=== PATIENT | female | born 1945 | race Caucasian/White ===

== ENCOUNTER → 2017-03-13 | Outpatient (CLI) | payer MEDICARE, OTHER | LOC: M.RAD 15:44 | DX: R05 Cough (principal); R07.89 Other chest pain ==

== ENCOUNTER 2018-03-10 13:54 | Emergency (ER) | payer MEDICARE, OTHER ==
[~2018-03-10] VITALS: Ht 167.6 cm; Wt 84.4 kg
[2018-03-10] MEDS ORDERED: COZAAR 25 MG TA25 M2 PO (14:36)
[2018-03-10] MEDS ORDERED: ZANTAC 150MG T150 MG PO (14:36)
[2018-03-10] MEDS ORDERED: CARISOPRODOL 3350 MG PO (14:37)
[2018-03-10] MEDS ORDERED: SPIRIVA INH (14:37)
[2018-03-10] MEDS ORDERED: PROBIOTIC1 EAC1 PO (14:37)
[2018-03-10] MEDS ORDERED: CENTRUM SILVER1 EAC4 PO (14:37)
[2018-03-10] MEDS ORDERED: METHENAMINE MAND1 GM INTRAOCULR (14:38)
[2018-03-10] MEDS ORDERED: DORZOLAMIDE HCL10 ML OPHTHALMIC (14:39)
[2018-03-10] MEDS ORDERED: BRIMONIDINE 0.110 ML INTRAOCULR (14:40)
[2018-03-10] MEDS ORDERED: [UNRECOGNIZED DRUG - OTHER] OPHTHALMIC (14:40)
[2018-03-10] MEDS ORDERED: TYLENOL EXTRA500 MG PO (14:41)
[2018-03-10 14:45] LABS: ABSOLUTE BASOPHILS 0.1 thou/uL (0.0-0.2); ABSOLUTE EOSINOPHILS 0.1 thou/uL (0.0-0.7); ABSOLUTE LYMPHOCYTES 2.2 thou/uL (0.8-5.3); ABSOLUTE MONOCYTES 0.8 thou/uL (0.0-1.2); ABSOLUTE NEUTROPHILS 5.6 thou/uL (1.6-8.1); BASOPHILS 1.1 %; EOSINOPHILS 1.4 %; HEMATOCRIT 42.2 % (37.0-47.0); HEMOGLOBIN 14.4 gm/dL (12.0-15.0); LYMPHOCYTES 24.8 %; MCH 28.6 pg (26.0-34.0); MCHC 34.1 g/dL (28.0-37.0); MCV 83.9 fL (80.0-100.0); MONOCYTES 9.4 %; MPV 7.4 fl. (7.2-11.1); NUCLEATED RBCS 0 /100WBC; PLATELET COUNT* 341 thou/uL (150-400); POLYS 63.3 %; RBC 5.03 mil/uL (4.20-5.00); RDW-CV 14.5 % (10.5-14.5); WBC 8.9 thou/uL (4.0-11.0)
[2018-03-10 14:58] LABS: CALCIUM 9.4 mg/dL (8.5-10.1); CREATININE 0.8 mg/dL (0.6-1.3); POTASSIUM 3.3 mmol/L (3.5-5.1)
[2018-03-10 15:09] LABS: ALBUMIN 3.5 g/dL (3.4-5.0); TOTAL BILIRUBIN 0.3 mg/dL (<0.1-1.0); TOTAL PROTEIN 7.6 g/dL (6.4-8.2)
[2018-03-10 15:29] LABS: URINE BILIRUBIN NEGATIVE (Negative); URINE BLOOD NEGATIVE (Negative); URINE CLARITY CLEAR; URINE COLOR STRAW; URINE GLUCOSE-RANDOM NEGATIVE (Negative); URINE KETONES NEGATIVE (Negative); URINE LEUKOCYTES-REFLEX NEGATIVE (Negative); URINE NITRITE-REFLEX NEGATIVE (Negative); URINE PROTEIN TRACE (Negative); URINE SPECIFIC GRAVITY <= 1.005 (1.005-1.030); URINE UROBILINOGEN 0.2 E.U./dl (0.2-1.0)
[2018-03-10] MEDS ORDERED: BUTALB-APAP-CA1 EACH PO (15:42)
[2018-03-10 15:57] LABS: ESR (SEDRATE) 21 mm/hr (0-30)
[2018-03-10] MEDS ORDERED: CLONIDINE0.1 PO (17:01)
[2018-03-10 17:26] VITALS: BP 164/73
--- NOTE | 2018-03-11 12:44 | EKG ---
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 GRACE : 1945 Requested By: Baldo Gallo Order Number: [id number] MD: Manuel Zepeda Measurements Intervals [place] Rate: 68 P: -42 VA: 139 QRS: -39 QRSD: 99 T: 55 QT: 432 QTc: 460 Interpretive Statements Sinus rhythm Left ventricular hypertrophy, by voltage No previous ECG available for comparison Electronically Signed On 03-11-2018 12:44:36 [employer] by Manuel Zepeda [email or web address] <ELECTRONICALLY SIGNED> By: Manuel Zepeda MD, [facility] 03/11/18 1244 1442 1442 Manuel Zepeda MD, FACC /EPI
== END 2018-03-10 17:26 | disposition home or self-care (01) ==
LOC: M.ERS 13:54
PROVIDERS: Nurse Practitioner Psychiatric/Mental Health
DX: R51 Headache (principal); M54.2 Cervicalgia; R03.0 Elevated blood-pressure reading, without diagnosis of hypertension; M19.90 Unspecified osteoarthritis, unspecified site; F17.210 Nicotine dependence, cigarettes, uncomplicated; Z88.0 Allergy status to penicillin; Z90.710 Acquired absence of both cervix and uterus

== ENCOUNTER → 2019-01-01 | Outpatient (CLI) | payer MEDICARE, OTHER ==
[~2019-01-01] MED LIST: BRIMONIDINE 0.110 ML INTRAOCULR; BUTALB-APAP-CA1 EACH PO; CARISOPRODOL 3350 MG PO; CENTRUM SILVER1 EAC4 PO; CLONIDINE0.1 PO; COZAAR 25 MG TA25 M2 PO; DORZOLAMIDE HCL10 ML OPHTHALMIC; METHENAMINE MAND1 GM INTRAOCULR; PROBIOTIC1 EAC1 PO; SPIRIVA INH; TYLENOL EXTRA500 MG PO; ZANTAC 150MG T150 MG PO; [UNRECOGNIZED DRUG - OTHER] OPHTHALMIC
--- NOTE | 2019-01-01 15:13 | EKG ---
[place] [address] ELECTROCARDIOGRAM REPORT Name: BRUNOLA YANETH Room: [facility]#: [id number] Admission: 01/01/19 Attend Phys: Elisabeth Morrell MD Discharge: Date of : 45 Report #: [id number] THIS REPORT FOR: //name// [facility] Test Date: 2019-01-01 Test Time: 13:07:17 Pat Name: LA CARR Department: Room: Gender: F [employer] Anchor: : 1945 Requested By: Elisabeth Morrlel Order Number: [id number] Reading MD: Mac Kong Measurements Intervals [place] Rate: 57 P: -17 ID: [id number] QRS: -34 QRSD: 106 T: 62 QT: 445 QTc: 434 Interpretive Statements Sinus rhythm Left ventricular hypertrophy Compared to ECG 03/10/2018 14:42:43 No significant changes Electronically Signed On 01-01-2019 15:13:41 CDT by Mac Kong [email or web address] <ELECTRONICALLY SIGNED> By: Mac Kong MD, [facility] 01/01/19 1513 1307 06 Mac Kong MD, FACC /EPI
== END ==
LOC: M.CRD 12:34
DX: I51.7 Cardiomegaly (principal)

== ENCOUNTER 2019-10-26 21:06 | Observation (INO) | payer MEDICARE, OTHER ==
[~2019-10-26] VITALS: Ht 167.6 cm; Wt 76.8 kg
[2019-10-26 21:08] VITALS: BP 108/70
[2019-10-27 00:25] VITALS: BP 128/71
[2019-10-27 00:45] VITALS: BP 122/71
[2019-10-27] MEDS ORDERED: TOPROL XL25 MG PO (02:11)
[2019-10-27] MEDS ORDERED: HYDROCHLOROTHIA25 M2 PO (02:12)
[2019-10-27 08:58] LABS: ABSOLUTE LYMPHOCYTES 1.8 thou/uL (0.8-5.3); ABSOLUTE NEUTROPHILS 7.2 thou/uL (1.6-8.1); BASOPHILS 0.4 %; EOSINOPHILS 0.3 %; HEMATOCRIT 38.1 % (37.0-47.0); HEMOGLOBIN 13.2 gm/dL (12.0-15.0); LYMPHOCYTES 18.2 %; MCH 29.6 pg (26.0-34.0); MCHC 34.6 g/dL (28.0-37.0); MCV 85.8 fL (80.0-100.0); MONOCYTES 10.2 %; MPV 7.2 fl. (7.2-11.1); NUCLEATED RBCS 0 /100WBC; PLATELET COUNT* 275 thou/uL (150-400); POLYS 70.9 %; RBC 4.45 mil/uL (4.20-5.00); RDW-CV 13.7 % (10.5-14.5); WBC 10.1 thou/uL (4.0-11.0)
[2019-10-27 09:04] LABS: CALCIUM 8.7 mg/dL (8.5-10.1); CREATININE 0.9 mg/dL (0.6-1.3)
[2019-10-27 09:09] LABS: ALBUMIN 3.3 g/dL (3.4-5.0); TOTAL BILIRUBIN 0.4 mg/dL (<0.1-1.0)
[2019-10-27] MEDS ORDERED: NORCO 5-325 TA1 EAC2 PO (09:27)
[2019-10-27 09:59] VITALS: BP 122/71
[2019-10-27 10:02] VITALS: BP 122/71
[2019-10-27 10:43] VITALS: BP 122/71
[2019-10-27 14:40] VITALS: BP 122/71
== END 2019-10-27 14:44 | disposition home or self-care (01) ==
LOC: M.ERS 21:06 → M.TBA-ER 23:49 → M.ORTHSURG 10-27 00:34
PROVIDERS: Internal Medicine; ADMIT Internal Medicine; ATTEND Internal Medicine
DX: Z03.818 Encounter for observation for suspected exposure to other biological agents ruled out (principal); S42.301A Unspecified fracture of shaft of humerus, right arm, initial encounter for closed fracture; S00.83XA Contusion of other part of head, initial encounter; F17.210 Nicotine dependence, cigarettes, uncomplicated; Z79.899 Other long term (current) drug therapy; W01.0XXA Fall on same level from slipping, tripping and stumbling without subsequent striking against object, initial encounter; Y93.89 Activity, other specified; Y92.89 Other specified places as the place of occurrence of the external cause

== ENCOUNTER → 2020-11-17 | Outpatient (CLI) | payer MEDICARE, OTHER ==
[~2020-11-17] MED LIST changes: +HYDROCHLOROTHIA25 M2 PO; +NORCO 5-325 TA1 EAC2 PO; +TOPROL XL25 MG PO
--- NOTE | 2020-11-17 16:41 | 2DMMODE ---
[place] [address] 2 D/M-MODE ECHOCARDIOGRAM Name: LA CARR Room: [facility]#: [id number] Admission: 11/17/20 Attend Phys: Mary John RN Discharge: Date of : 45 Date of Service: 11/17/20 1641 Report #: [id number] THIS REPORT FOR: cc: Elisabeth Morrell MD, Katrina MD Holkins, John M. MD [facility] ~ APPROVED REPORT Study performed: 11/17/2020 10:18:48 EXAM: Comprehensive 2D, Doppler, and color-flow Echocardiogram Patient Location: Out-Patient Status: routine BSA: 1.71 HR: 56 bpm BP: 112/68 mmHg Rhythm: NSR Indications Aortic Valve Disease 2D Dimensions IVSd: 11.10 (7-11mm) LVOT Diam: 20.37 (18-24mm) LVDd: 49.62 mm PWd: 9.77 (7-11mm) Ascending Ao: 40.59 (22-36mm) LVDs: 27.39 (25-40mm) Aortic Root: 31.39 mm Volumes Left Atrial Volume (Systole) LA ESV Index: 23.80 mL/m2 Aortic Valve AoV Peak Shayne.: 1.89 m/s AO Peak Gr.: 14.29 mmHg LVOT Max P.55 mmHg AO Mean Gr.: 7.68 mmHg LVOT Mean P.16 mmHg LVOT Max V: 1.37 m/s AO V2 VTI: 39.50 cm LVOT Mean V: 0.95 m/s LOBO (VTI): 2.83 cm2 LVOT V1 VTI: 34.27 cm AI [place]: 2.33 m/s2 AI PHT: 547.29 [place] [address] 2 D/M-MODE ECHOCARDIOGRAM Name: BRUNOLA Room: [facility]#: [id number] Admission: 11/17/20 Attend Phys: Mary John RN Discharge: Date of : 45 Date of Service: 11/17/20 1641 Report #: [id number] MV Peak Gr.: 6.14 mmHg MV Mean Gr.: 2.38 mmHg E/A Ratio: 0.68 MV Decel. Time: 118.10 ms MV E Max Shayne.: 0.57 m/s MV PHT: 34.25 ms MVA (PHT): 6.42 cm2 TDI E/Lateral E': 8.14 E/Medial E': 5.18 Medial E' Shayne.: 0.11 m/s Lateral E' Shayne.: 0.07 m/s Pulmonary Valve PV Peak Shayne.: 1.08 m/s PV Peak Gr.: 4.63 mmHg Tricuspid Valve RAP Estimate: 5.00 mmHg TR Peak Gr.: 29.83 mmHg RVSP: 34.00 mmHg PA Pressure: 34.00 mmHg Left Ventricle The left ventricle is normal size. There is normal LV segmental wall motion. There is normal left ventricular wall thickness. Left ventricular systolic function is normal. The left ventricular ejection fraction is within the normal range. LVEF is 55-60%. Grade I - abnormal relaxation pattern. Right Ventricle The right ventricle is normal size. The right ventricular systolic function is normal. Atria Left atrium is mildly dilated. The right atrium size is normal. Aortic Valve Mild aortic valve sclerosis. Moderate aortic regurgitation. There is no aortic valvular stenosis. Mitral Valve The mitral valve is normal in structure. Mild mitral regurgitation. No evidence of mitral valve stenosis. Tricuspid Valve The tricuspid valve is normal in structure. Mild tricuspid regurgitation. [place] [address] 2 D/M-MODE ECHOCARDIOGRAM Name: LA CARR Room: [facility]#: [id number] Admission: 11/17/20 Attend Phys: Mary John RN Discharge: Date of : 45 Date of Service: 11/17/20 1641 Report #: [id number] Pulmonic Valve The pulmonary valve is normal in structure. Mild pulmonic regurgitation. Great Vessels The aortic root is normal in size. The ascending aorta is mildly dilated. IVC is normal in size and collapses >50% with inspiration. Pericardium There is no pericardial effusion. <Conclusion> The left ventricle is normal size. There is normal left ventricular wall thickness. Left ventricular systolic function is normal. The left ventricular ejection fraction is within the normal range. LVEF is 55-60%. Grade I - abnormal relaxation pattern. The right ventricle is normal size. Left atrium is mildly dilated. Mild aortic valve sclerosis. Moderate aortic regurgitation. There is no aortic valvular stenosis. The mitral valve is normal in structure. Mild mitral regurgitation. The tricuspid valve is normal in structure. Mild tricuspid regurgitation. Mild pulmonary hypertension. The aortic root is normal in size. The ascending aorta is mildly dilated. IVC is normal in size and collapses >50% with inspiration. There is normal LV segmental wall motion. <ELECTRONICALLY SIGNED> By: Mac Kong MD, FACC 11/17/201640 40 40 Mac Kong MD, FACC /INF
== END ==
LOC: M.CRD 10:00
PROVIDERS: ATTEND Registered Nurse
DX: I08.8 Other rheumatic multiple valve diseases (principal); I27.20 Pulmonary hypertension, unspecified